=== PATIENT | male | born 1965 | race Asian ===

== ENCOUNTER 2019-10-23 14:09 | Outpatient (CLI) | payer OTHER | END 2019-10-23 14:13 | disposition short-term general hospital (02) | LOC: AMB 14:09 | DX: R50.9 Fever, unspecified (principal); R05 Cough | CPT/HCPCS: A0425; A0427 ==

== ENCOUNTER 2019-10-23 14:21 | Emergency (ER) | payer OTHER ==
[~2019-10-23] VITALS: Ht 175.3 cm; Wt 97.5 kg
[2019-10-23 14:57] LABS: PLATELET COUNT 212 K/uL (142-355)
[2019-10-23 15:01] LABS: POTASSIUM 3.9 mmol/L (3.6-5.2)
[2019-10-23 16:21] VITALS: BP 136/80; TEMP 100
== END 2019-10-23 16:22 | disposition home or self-care (01) ==
LOC: ED 14:21
PROVIDERS: Family Medicine
DX: J10.1 Influenza due to other identified influenza virus with other respiratory manifestations (principal); R05 Cough; R50.9 Fever, unspecified
CPT/HCPCS: 80053; 85027; 87502; 87651; 99283